=== PATIENT | female | born 1960 | race Caucasian/White ===

== ENCOUNTER → 2017-05-08 | Outpatient (CLI) | payer OTHER ==
--- NOTE | 2017-05-11 22:22 | Diagnostic Imaging Report ---
Bilateral screening mammogram 2D views with tomosynthesis The current study was also evaluated with a Computer Aided Detection (CAD) system. INDICATION: Screening. No current complaints stated on the questionnaire. COMPARISON: 05/08/2005. FINDINGS: The breasts are composed of almost entirely fatty tissue. No mass, architectural distortion, or suspicious cluster of calcifications. Allowing for technique and positional differences, no suspicious change is seen. IMPRESSION: No significant change. ACR BI-RADS Category 2: Benign findings. Result letter will be mailed to the patient. Note: At least 10% of breast cancer is not imaged by mammography. Dictated by: Dictated on workstation # [id number]
== END ==
LOC: RAD 12:57
PROVIDERS: ATTEND Nurse Practitioner Family
DX: Z12.31 Encounter for screening mammogram for malignant neoplasm of breast (principal)
CPT/HCPCS: 77067

== ENCOUNTER → 2018-09-29 | Outpatient (CLI) | payer SELFPAY ==
[~2018-09-29] MED LIST: BARIUM SUSPENSION 105% (LIQUID POLIBAR PLUS) 240 ML/DOSE PO ONE; BARIUM SUSPENSION 60% (LIQUID EZ PAQUE) 240 ML DOSE PO ONE
--- NOTE | 2018-09-29 10:23 | Diagnostic Imaging Report ---
INDICATION: Difficulty swallowing. TECHNIQUE: Patient ingested effervescent crystals as well as thin and thick barium and imaging of the esophagus was performed. One minute and 18 seconds of fluoroscopy was utilized. FINDINGS: Preliminary radiograph of the abdomen is unremarkable apart from right convexity thoracic scoliotic curvature. Swallowing mechanism is intact. The esophagus has a smooth contour. No mass or stricture is identified. There is a small hiatal hernia. No reflux is demonstrated. IMPRESSION: Small hiatal hernia. The study is otherwise unremarkable. Dictated by: Dictated on workstation # [id number]
== END ==
LOC: RAD 08:47
PROVIDERS: ATTEND Internal Medicine
DX: K22.4 Dyskinesia of esophagus (principal); K44.9 Diaphragmatic hernia without obstruction or gangrene
CPT/HCPCS: 74220

== ENCOUNTER → 2019-03-30 | Outpatient (CLI) | payer SELFPAY ==
--- NOTE | 2019-03-30 10:45 | Diagnostic Imaging Report ---
INDICATION: Back pain. COMPARISON: None. FINDINGS: Evaluation of the static alignment of the lumbar spine shows mild dextroscoliotic deformity. AP static alignment is maintained. There is no significant anteroretrolisthesis. There is no evidence of jumped facets. Vertebral body heights are maintained. There is no acute fracture. Marrow signal is normal throughout. There is mild multilevel intervertebral disc height loss. Anterior osteophyte formations are also noted. Thoracic cord is normal in size and signal. There is no evidence of cord edema. No abnormal intrathecal filling defects are seen. Pre and paravertebral soft tissue structures are unremarkable. Axial images show no large disc bulge or focal protrusion. There is mild multilevel facet arthropathy, but no significant spinal canal or neuroforaminal stenosis is seen. IMPRESSION: 1. Mild multilevel degenerative changes as described above, but no significant spinal canal or neuroforaminal stenosis. 2. No acute fracture or dislocation of the thoracic spine. Dictated by: Dictated on workstation # [id number]
== END ==
LOC: RAD 08:29
PROVIDERS: ATTEND Internal Medicine
DX: Z23 Encounter for immunization (principal); M47.814 Spondylosis without myelopathy or radiculopathy, thoracic region; M41.84 Other forms of scoliosis, thoracic region; M51.34 Other intervertebral disc degeneration, thoracic region; M25.78 Osteophyte, vertebrae; M46.84 Other specified inflammatory spondylopathies, thoracic region
CPT/HCPCS: 72146